=== PATIENT | male | born 1950 | race Caucasian/White ===

== ENCOUNTER → 2024-03-06 | Outpatient (CLI) | payer MEDICARE, SELFPAY ==
[2024-03-06 11:36] LABS: Basophils # (Auto) 0.1 Thou/mm3 (0.0-0.2); Basophils % (Auto) 1 % (0-2.5); Eosinophils # (Auto) 0.3 Thou/mm3 (0.0-0.5); Eosinophils % (Auto) 4 % (0-10); Hematocrit 44.3 % (41.0-53.0); Hemoglobin 14.6 g/dL (13.5-16.0); Immature Granulocytes % (Auto) 0 % (0-0); Immature Granulocytes Auto 0.02 Thou/mm3 (0.00-0.00); Lymphocytes # (Auto) 2.1 Thou/mm3 (1.0-4.8); Lymphocytes % (Auto) 32 % (10-50); Mean Corpuscular Hemoglobin 30.9 pg (25.0-35.0); Mean Corpuscular Volume 94 fL (80-100); Monocytes # (Auto) 0.7 Thou/mm3 (0.0-0.8); Monocytes % (Auto) 10 % (0-12); Neutrophils # (Auto) 3.6 Thou/mm3 (1.8-7.7); Neutrophils % (Auto) 54 % (37-80); Nucleated Red Blood Cell % 0 /100 WBC (0); Platelet Count 218 Thou/mm3 (140-440); RDW Standard Deviation 46.5 fL (35.1-43.9); Red Blood Count 4.72 Miln/mm3 (4.50-5.90); White Blood Count 6.7 Thou/mm3 (3.8-10.6)
[2024-03-06 11:58] LABS: Alanine Aminotransferase 73 U/L (10-49); Albumin, Serum 4.7 gm/dL (3.4-4.8); Albumin/Globulin Ratio 2.2 (1.2-2.2); Alkaline Phosphatase 95 U/L (46-116); Anion Gap 2 (7-16); Aspartate Amino Transferase 40 U/L (0-34); BUN/Creatinine Ratio 23 Ratio (12-20); Bilirubin,Total 0.8 mg/dL (0.3-1.2); Blood Urea Nitrogen 18 mg/dL (9-23); Calcium 10.1 mg/dL (8.3-10.6); Calcium (Corrected) 10.1 mg/dL (8.5-10.1); Carbon Dioxide 30.6 mMol/L (20.0-31.0); Chloride 105 mMol/L (98-107); Creatinine (Component) 0.8 mg/dL (0.6-1.3); Globulin 2.1 gm/dL (2.3-3.5); Glucose 105 mg/dL (74-106); Osmolality,Calculated 277 (275-295); Potassium 5.4 mMol/L (3.4-5.1); Sodium 138 mMol/L (136-145); Total Protein 6.8 gm/dL (5.7-8.2); eGFR > 60 See Note
== END | disposition home or self-care (01) ==
PROVIDERS: PCP Family Medicine; Referring Provider Internal Medicine; Visit Provider Internal Medicine
DX: R74.01 Elevation of levels of liver transaminase levels (principal)
CPT/HCPCS: 36415; 80053; 85025

== ENCOUNTER → 2025-01-18 | Outpatient (CLI) | payer MEDICARE, MEDICAID, SELFPAY | END | disposition home or self-care (01) | PROVIDERS: Referring Provider Student in an Organized Health Care Education/Training Program; Visit Provider Student in an Organized Health Care Education/Training Program | DX: N39.0 Urinary tract infection, site not specified (principal) | CPT/HCPCS: 87086 ==

== ENCOUNTER → 2025-02-14 | Outpatient (CLI) | payer MEDICARE, MEDICAID, SELFPAY ==
--- NOTE | 2025-02-14 | XR_ITS ---
Examination: CT abdomen and pelvis without contrast. Coronal 3-D reconstructions. Sagittal 2-D reconstructions. Date and time of exam: February 14, 2025, 0748 hours INDICATIONS: Generalized abdominal pain and hematuria beginning 1 month ago CTDI: vol (mGy): 7.68 DLP: (mGycm): 423 Technique: Axial images of the abdomen have been obtained, 3 mm slice thickness Intravenous contrast material has not been administered. Low dose protocols were performed. One or more of the following dose reduction techniques were used; automated exposure control, adjustment of the mA and/or KV according to patient size, use of iterative reconstruction technique. Findings: No visualized liver lesion 14 mm splenic lesion No gallstones No pancreatic mass Left adrenal mass, 24 mm No renal or ureteral calculi, no hydronephrosis Aortic calcification no aneurysmal dilatation No bowel obstruction Colonic diverticulosis, no diverticulitis Mildly fluid distended small bowel loops in the pelvis Colonic diverticulosis No pericecal inflammatory change Urinary bladder wall thickening up to 6 mm IMPRESSION: 14 mm splenic lesion, recommend splenic sonography follow-up Left adrenal mass 24 mm, differential would include primary and metastatic adrenal gland tumor, recommend MRI adrenal glands follow-up pre and postcontrast Mild small bowel ileus Cystitis pattern
--- NOTE | 2025-02-14 07:30 | XR_ITS ---
Examination: CT chest, without intravenous contrast. Sagittal and coronal 2-D reconstructions. Exam date and time: February 14, 2025, 0748 hours INDICATIONS: Smoking history 35 years COMPARISON: December 30, 2022 CTDI:vol (mGy) 10.9 DLP: (mGycm) 410 Technique: Multiple 3.0 mm axial sections of the chest to been obtained. Bone and lung density settings are obtained. Sagittal and coronal 2-D reconstructions have been obtained. Low dose protocols were performed. One or more of the following dose reduction techniques were used; automated exposure control, adjustment of the mA and/or KV according to patient size, use of iterative reconstruction technique. Findings: No thoracic aortic aneurysmal dilatation Pulmonary artery segments are not enlarged Moderate calcification left anterior descending coronary artery No paratracheal or tracheobronchial or bronchopulmonary adenopathy. Minor scarring in the right middle lobe 6 mm, 5 mm pulmonary nodules right lower lobe No visualized liver or splenic lesion No pancreatic mass IMPRESSION: Recommend 1 additional 6-month follow-up CT chest without contrast to document stability of 2 pulmonary nodules in the right lower lobe
--- NOTE | 2025-02-14 08:00 | XR_ITS ---
EXAMINATION: Ultrasound abdominal aorta Date and time: February 14, 2025, 0810 hours INDICATIONS: Smoking history 35 years TECHNIQUE AND FINDINGS: Sonographic images abdominal aorta. Transverse dimension proximal aorta 1.8 cm mid aorta 1.9 cm distal aorta 1.9 cm right iliac 1.0 cm left iliac 1.1 cm IMPRESSION: Negative for abdominal aortic aneurysm
== END | disposition home or self-care (01) ==
LOC: CCTX 07:19
PROVIDERS: PCP Internal Medicine; Referring Provider Internal Medicine; Visit Provider Internal Medicine
DX: Z13.6 Encounter for screening for cardiovascular disorders (principal); Z12.2 Encounter for screening for malignant neoplasm of respiratory organs; R91.8 Other nonspecific abnormal finding of lung field; F17.200 Nicotine dependence, unspecified, uncomplicated; D73.89 Other diseases of spleen; E27.8 Other specified disorders of adrenal gland; K56.7 Ileus, unspecified
CPT/HCPCS: 71250; 74176; 76706

== ENCOUNTER → 2025-02-22 | Outpatient (BNVA) | payer MEDICARE, SELFPAY | END | disposition home or self-care (01) | PROVIDERS: PCP Family Medicine; Referring Provider Family Medicine; Visit Provider Urology | DX: N40.1 Benign prostatic hyperplasia with lower urinary tract symptoms (principal); N13.8 Other obstructive and reflux uropathy; R31.9 Hematuria, unspecified; E27.9 Disorder of adrenal gland, unspecified; J44.9 Chronic obstructive pulmonary disease, unspecified; I10 Essential (primary) hypertension; I25.10 Atherosclerotic heart disease of native coronary artery without angina pectoris; Z95.5 Presence of coronary angioplasty implant and graft; Z95.0 Presence of cardiac pacemaker; E66.9 Obesity, unspecified; Z71.3 Dietary counseling and surveillance; Z68.28 Body mass index [BMI] 28.0-28.9, adult | CPT/HCPCS: 81003; 99212; G0463 ==

== ENCOUNTER → 2025-03-15 | Outpatient (CLI) | payer MEDICARE, MEDICAID, SELFPAY ==
--- NOTE | 2025-03-15 14:47 | XR_ITS ---
EXAMINATION: Ultrasound soft tissue spleen TECHNIQUE: Grayscale sonographic images spleen Date and time: March 15, 2025, 1522 hours INDICATIONS: CT examination abdomen February 15, 2000 2514 mm splenic lesion FINDINGS: Hypoechoic splenic lesion 9 x 8 x 11 mm, consider granuloma, early splenic tumor not excluded IMPRESSION: 9 x 8 x 11 mm splenic lesion confirmed, recommend 3-month follow-up splenic sonography
[2025-03-15 17:18] LABS: Basophils # (Auto) 0.1 Thou/mm3 (0.0-0.2); Basophils % (Auto) 1 % (0-2.5); Eosinophils # (Auto) 0.3 Thou/mm3 (0.0-0.5); Eosinophils % (Auto) 4 % (0-10); Hematocrit 40.4 % (41.0-53.0); Hemoglobin 13.6 g/dL (13.5-16.0); Immature Granulocytes Auto 0.01 Thou/mm3 (0.00-0.00); Lymphocytes # (Auto) 1.8 Thou/mm3 (1.0-4.8); Lymphocytes % (Auto) 28 % (10-50); Mean Corpuscular HGB Conc 33.7 g/dl (31.0-37.0); Mean Corpuscular Hemoglobin 31.3 pg (25.0-35.0); Mean Corpuscular Volume 93 fL (80-100); Monocytes # (Auto) 0.8 Thou/mm3 (0.0-0.8); Monocytes % (Auto) 12 % (0-12); Neutrophils # (Auto) 3.5 Thou/mm3 (1.8-7.7); Neutrophils % (Auto) 55 % (37-80); Nucleated Red Blood Cell # 0.00 Thou/mm3 (0.00-0.00); Nucleated Red Blood Cell % 0 /100 WBC (0); Platelet Count 207 Thou/mm3 (140-440); RDW Standard Deviation 44.2 fL (35.1-43.9); Red Blood Count 4.35 Miln/mm3 (4.50-5.90); White Blood Count 6.3 Thou/mm3 (3.8-10.6)
[2025-03-15 17:24] LABS: Alanine Aminotransferase 52 U/L (10-49); Albumin, Serum 4.7 gm/dL (3.4-4.8); Albumin/Globulin Ratio 2.9 (1.2-2.2); Alkaline Phosphatase 97 U/L (46-116); Anion Gap 6 (7-16); Aspartate Amino Transferase 35 U/L (0-34); BUN/Creatinine Ratio 24 Ratio (12-20); Bilirubin,Total 0.5 mg/dL (0.3-1.2); Blood Urea Nitrogen 19 mg/dL (9-23); Calcium 9.2 mg/dL (8.3-10.6); Calcium (Corrected) 9.2 mg/dL (8.5-10.1); Carbon Dioxide 30.6 mMol/L (20.0-31.0); Chloride 108 mMol/L (98-107); Creatinine (Component) 0.8 mg/dL (0.6-1.3); Globulin 1.6 gm/dL (2.3-3.5); Glucose 80 mg/dL (74-106); Osmolality,Calculated 289 (275-295); Potassium 4.1 mMol/L (3.4-5.1); Sodium 145 mMol/L (136-145); Total Protein 6.3 gm/dL (5.7-8.2); eGFR > 60 See Note
== END | disposition home or self-care (01) ==
LOC: CDIM 14:43 → COPL 15:37
PROVIDERS: PCP Internal Medicine; Referring Provider Internal Medicine; Visit Provider Radiology Diagnostic Radiology
DX: D73.89 Other diseases of spleen (principal)
CPT/HCPCS: 36415; 76705; 80053; 85025

== ENCOUNTER → 2025-04-12 | Outpatient (BNVA) | payer MEDICARE, MEDICAID, SELFPAY | END | disposition home or self-care (01) | PROVIDERS: PCP Family Medicine; Referring Provider Family Medicine; Visit Provider Urology | DX: N40.1 Benign prostatic hyperplasia with lower urinary tract symptoms (principal); R39.12 Poor urinary stream; I10 Essential (primary) hypertension; Z95.0 Presence of cardiac pacemaker; Z87.891 Personal history of nicotine dependence | CPT/HCPCS: 51741; 51798 ==

== ENCOUNTER → 2025-04-24 | Outpatient (CLI) | payer MEDICARE, MEDICAID, SELFPAY ==
[2025-04-23 16:52] LABS: Albumin, Serum 4.7 gm/dL (3.4-4.8); Anion Gap 6 (7-16); BUN/Creatinine Ratio 24 Ratio (12-20); Blood Urea Nitrogen 22 mg/dL (9-23); Calcium 9.3 mg/dL (8.3-10.6); Calcium (Corrected) 9.3 mg/dL (8.5-10.1); Carbon Dioxide 28.6 mMol/L (20.0-31.0); Chloride 108 mMol/L (98-107); Creatinine (Component) 0.9 mg/dL (0.6-1.3); Glucose 83 mg/dL (74-106); Osmolality,Calculated 287 (275-295); Phosphorous 3.6 mg/dL (2.4-5.1); Potassium 4.7 mMol/L (3.4-5.1); Sodium 143 mMol/L (136-145); eGFR > 60 See Note
--- NOTE | 2025-04-24 12:21 | XR_ITS ---
Upright PA and lateral chest film 04/24/2025 at 12:45 p.m. INDICATION: Pre-MRI rule out metallic foreign body Comparison study 12/17/2020 FINDINGS: No acute infiltrates are seen in either lung, however it appears to made that there is abnormal hyperlucency in the upper half of the right lung and upper third of the left lung suggesting probable emphysema heart size and mediastinum are normal. Cardiac pacemaker is in place with electrodes in good position over the right atrium and right ventricle. Heart size is normal There is very extensive and severe degenerative disc space narrowing at virtually all levels throughout the dorsal spine with surrounding osteophyte formation IMPRESSION: 1. No metallic foreign bodies are seen. The only metallic densities noted is a right total shoulder joint replacement and cardiac pacemaker 2. I suspect probable emphysema chest otherwise 3. Major very extensive and significant degenerative disc space narrowing throughout the entire dorsal spine
--- NOTE | 2025-04-24 12:21 | XR_ITS ---
AP and lateral radiographs of the skull on 04/24/2025 at 12:53 p.m.: CLINICAL HISTORY: Screening prior to MRI of the brain, possible metallic foreign bodies FINDINGS: There are a few tiny localized lucencies noted overlapping the calvarium in several locations these are probably benign venous lakes. In the supportive this, there are also many very prominent venous channels noted along the inner table of the skull. No metallic foreign bodies are seen anywhere in the skull or in the upper neck region IMPRESSION: 1. No metallic foreign bodies are seen
--- NOTE | 2025-04-24 13:00 | XR_ITS ---
Examination: MRI abdomen with intravenous contrast. MRI abdomen without intravenous contrast. Date and time of exam: April 24, 2025, 1404 hours INDICATIONS: Episode of hematuria 1 month ago, CT examination abdomen pelvis February 14, 2025 24 mm left adrenal mass Technique: Multiple axial, sagittal and coronal sections of the abdomen obtained. Transverse images, TR 6020, TE 107. T1 weighted transverse images, TR 582, TE 9.5. T2-weighted sagittal images, TR 4000, TE 105. T2-weighted sagittal images, TR 4000, TE 5. Coronal images, TR 4210, TE 107. Axial and coronal images are obtained post 19 cc intravenous injection, gadolinium. Findings: No focal liver lesions No gallstones Normal common hepatic common bile duct Minimal dilatation pancreatic duct 2.5 mm No pancreatic mass Splenic cyst, 15 mm 24 mm left adrenal mass This does not show enhancement on the postcontrast images No hydronephrosis IMPRESSION: Signal characteristics favor a benign left adrenal mass Recommend 6-month follow-up CT abdomen with and without intravenous contrast
== END | disposition home or self-care (01) ==
PROVIDERS: PCP Internal Medicine; Referring Provider Internal Medicine; Visit Provider Family Medicine
DX: E27.8 Other specified disorders of adrenal gland (principal); D73.89 Other diseases of spleen; M53.80 Other specified dorsopathies, site unspecified; Z87.820 Personal history of traumatic brain injury
CPT/HCPCS: 36415; 70250; 71046; 74183; 80069; A9577